=== PATIENT | male | born 1940 | race Two or more races ===

== ENCOUNTER 2021-07-01 07:35 | Outpatient (CLI) | payer OTHER ==
[~2021-07-01 07:35] MED LIST: CLINDAMYCIN HC300 MG PO; GLIMEPIRIDE2 M1 PO; GLYXAMBI 25 MG1 EACH PO; IBUPROFEN800 MG PO; IRBESARTAN150 MG PO; MECLIZINE HCL25 MG PO; METFORMIN HCL1000 M3 PO; METOPROLOL SUCC25 MG PO; PANTOPRAZOLE SO20 MG PO; PLAVIX75 MG PO; SIMVASTATIN20 MG PO
== END 2021-07-01 15:30 | disposition home or self-care (01) ==
LOC: LAB 07:35 → EDBD 07:35 → LAB 15:30
PROVIDERS: ATTEND Emergency Medicine Pediatric Emergency Medicine
DX: R05.8 Other specified cough (principal); R06.02 Shortness of breath; Z03.818 Encounter for observation for suspected exposure to other biological agents ruled out; Z20.828 Contact with and (suspected) exposure to other viral communicable diseases

== ENCOUNTER 2023-12-21 14:28 | Inpatient (IN) | payer OTHER ==
[~2023-12-21] VITALS: Ht 167.6 cm; Wt 79.4 kg
[2023-12-21] MEDS ORDERED: 0.9 % SODIUM CHLORIDE 1,000 ML IV SCH ×2 (15:30→23:00)
[2023-12-21] MEDS ORDERED: 0.9 % SODIUM CHLORIDE 500 ML IV SCH (15:30)
[2023-12-21 15:49] LABS: HEMATOCRIT 48.9 % (39.0-48.0); HEMOGLOBIN 16.6 g/dL (13-16.00); MEAN CELL VOLUME 85.4 fL (80.0-100.00); MEAN CORPUSCULAR HEMOGLOBIN 28.9 pg (27.00-32.0); MEAN CORPUSCULAR HGB CONC 33.9 g/dl (32.0-36.0); PLATELET COUNT 236 K/uL (150-450); RED BLOOD COUNT 5.73 M/uL (4.00-6.00); RED CELL DISTRIBUTION WIDTH 14.8 % (11.5-14.5)
[2023-12-21] MEDS ORDERED: MULTIVIT INFUSN,ADULT 4,VIT K 10 ML VIAL IV SCH (15:59)
[2023-12-21 16:25] LABS: URINE APPEARANCE Clear; URINE BILIRRUBIN Negative (NEGATIVE); URINE BLOOD Small; URINE COLOR Yellow; URINE LEUKOCYTE Negative; URINE NITRATE Negative; URINE PROTEIN 30 (NEGATIVE); URINE UROBILINOGEN 0.2 E.U./dl
[2023-12-21 16:28] LABS: URINE EPITHELIAL CELLS 3.5 uL (0.0-38.8)
[2023-12-21 16:41] LABS: URINE GLUCOSE >=1000 MG/DL (NEGATIVE); URINE RBC 0.6 uL (0.0-20.8); URINE WBC 0.9 uL (0.0-23.2)
[2023-12-21 17:20] LABS: ALBUMIN 3.5 gm/dL (3.4-5.0); BILIRUBIN TOTAL 0.79 mg/dL (0.3-1.2); CALCIUM 9.1 mg/dL (8.5-10.1); CREATININE SERUM 1.41 mg/dL (0.70-1.30); GLOBULINA 4.2 G/DL (2.4-3.5); POTASSIUM 4.12 mEq/L (3.5-5.1); TOTAL PROTEIN 7.7 gm/dL (6.4-8.2)
[2023-12-21] MEDS ORDERED: BUDESONIDE 0.5 MG/2 ML AMPUL.NEB IH STA (20:11)
[2023-12-21] MEDS ORDERED: LEVALBUTEROL HCL 1.25 MG/3 ML SOLUTION IH SCH (20:15)
[2023-12-21] MEDS ORDERED: BUDESONIDE 0.5 MG/2 ML AMPUL.NEB IH ONE (21:44)
[2023-12-21] MEDS ORDERED: LEVALBUTEROL HCL 1.25 MG/3 ML SOLUTION IH ONE (21:44)
[2023-12-21] MEDS ORDERED: FAMOTIDINE/PF 20 MG/2 ML VIAL IV STA (21:48)
[2023-12-21] MEDS ORDERED: FAMOTIDINE/PF 20 MG/2 ML VIAL ONE (21:55)
[2023-12-21 22:30] LABS: ABG PO2 57.2 mmHg (80-100); ABG pCO2 29.6 mmHg (35-45); BASE EXCESS -8.1 mmol/l; Tco2 16.9 mmol/l
[2023-12-21 22:31] LABS: allen test SATISFACTORY; o2 21 %; puncture site RADIAL RIGHT
[2023-12-21] MEDS ORDERED: DEXTROSE 50 % IN WATER 0.5 G/ML DISP.SYRIN IV PRN (23:00)
[2023-12-21] MEDS ORDERED: INSULIN LISPRO 1,000 UNIT/10 ML UNITS SUBCUTANEO PRN (23:00)
[2023-12-21] MEDS ORDERED: BUDESONIDE 0.5 MG/2 ML AMPUL.NEB IH SCH (23:06)
[2023-12-21] MEDS ORDERED: CHOLECALCIFEROL (VITAMIN D3) 5,000 UNITS TABLET PO SCH (23:10)
[2023-12-21] MEDS ORDERED: ASCORBIC ACID 500 MG TABLET PO SCH (23:11)
[2023-12-21] MEDS ORDERED: FAMOTIDINE/PF 20 MG in 0.9 % SODIUM CHLORIDE 8 ML IV PUSH SCH (23:11)
[2023-12-22] MEDS ORDERED: METHYLPREDNISOLONE SOD SUCC 40 MG VIAL IV SCH (01:00)
[2023-12-22] MEDS ORDERED: LEVALBUTEROL HCL 1.25 MG/3 ML SOLUTION IH SCH (01:00)
[2023-12-22] MEDS ORDERED: METHYLPREDNISOLONE SOD SUCC 40 MG VIAL ONE (01:12)
[2023-12-22] MEDS ORDERED: LEVALBUTEROL HCL 0.63 MG/3 ML SOLUTION IH ONE ×2 (01:18→08:18)
[2023-12-22] MEDS ORDERED: LEVALBUTEROL HCL 1.25 MG/3 ML SOLUTION IH ONE (06:23)
[2023-12-22 06:41] LABS: ABG PH 7.325 (7.35-7.45); ABG PO2 103.7 mmHg (80-100); ABG pCO2 29.6 mmHg (35-45); SaO2 97.2 %
[2023-12-22 06:42] LABS: BASE EXCESS -9.4 mmol/l; BICARBONATE 15.1 mmol/l (23-25); allen test SATISFACTORY; o2 50 %; puncture site RADIAL RIGHT
[2023-12-22 06:56] LABS: HEMATOCRIT 50.4 % (39.0-48.0); HEMOGLOBIN 16.9 g/dL (13-16.00); MEAN CELL VOLUME 87.1 fL (80.0-100.00); MEAN CORPUSCULAR HEMOGLOBIN 29.2 pg (27.00-32.0); MEAN CORPUSCULAR HGB CONC 33.5 g/dl (32.0-36.0); PLATELET COUNT 136 K/uL (150-450); RED BLOOD COUNT 5.78 M/uL (4.00-6.00); RED CELL DISTRIBUTION WIDTH 14.6 % (11.5-14.5)
[2023-12-22 07:10] LABS: URINE APPEARANCE Clear; URINE BILIRRUBIN Negative (NEGATIVE); URINE BLOOD Small; URINE COLOR Yellow; URINE LEUKOCYTE Negative; URINE NITRATE Negative; URINE PROTEIN 30 (NEGATIVE); URINE UROBILINOGEN 0.2 E.U./dl
[2023-12-22 07:17] LABS: URINE BACTERIA 18.8 uL (0.0-1933); URINE EPITHELIAL CELLS 20.3 uL (0.0-38.8); URINE WBC 3.2 uL (0.0-23.2)
[2023-12-22 07:32] LABS: INR 1.18; PROTHROMBIN TIME 12.2 SECONDS (9.0-11.5)
[2023-12-22 07:36] LABS: URINE GLUCOSE >=1000 MG/DL (NEGATIVE); URINE RBC 0.7 uL (0.0-20.8)
[2023-12-22] MEDS ORDERED: BUDESONIDE 0.5 MG/2 ML AMPUL.NEB IH ONE (08:18)
[2023-12-22 08:23] LABS: ALBUMIN 3.4 gm/dL (3.4-5.0); BILIRUBIN TOTAL 0.63 mg/dL (0.3-1.2); CALCIUM 8.5 mg/dL (8.5-10.1); CREATININE SERUM 1.32 mg/dL (0.70-1.30); FERRITIN 165.1 NG/ML (26-388); GFR 51.8; MAGNESIUM 1.8 mg/dL (1.8-2.4); POTASSIUM 4.49 mEq/L (3.5-5.1); T4 FREE 0.98 NG/ML (0.76-1.46); TOTAL PROTEIN 7.4 gm/dL (6.4-8.2); TSH 1.1 uIU/mL (0.358-3.74)
[2023-12-22 08:29] LABS: COL EPI 88 SECONDS (82-175)
[2023-12-22 08:34] LABS: C-REACTIVE PROTEIN 14.8 MG/DL (0.00-0.29); PROSTATIC SPECIFIC ANTIGEN 7.58 NG/ML (0.010-4.00)
[2023-12-22] MEDS ORDERED: CHOLECALCIFEROL (VITAMIN D3) 5,000 UNITS TABLET PO SCH (09:00)
[2023-12-22] MEDS ORDERED: CYANOCOBALAMIN (VITAMIN B-12) 1,000 MCG/ML VIAL IM SCH (09:00)
[2023-12-22 09:15] LABS: ERYTHROCYTE SEDIMENTATION RATE 60 mm/hr
[2023-12-22] MEDS ORDERED: INSULIN LISPRO 1,000 UNIT/10 ML UNITS SUBCUTANEO ONE (10:24)
[2023-12-22 14:17] LABS: CKMB 7.3 NG/ML (0.5-3.6)
[2023-12-22] MEDS ORDERED: REMDESIVIR 100 MG VIAL IV NR (16:30)
[2023-12-22] MEDS ORDERED: METOPROLOL SUCCINATE 25 MG TAB.SR.24H PO SCH (17:00)
[2023-12-22] MEDS ORDERED: CLOPIDOGREL BISULFATE 75 MG TABLET PO SCH (17:00)
[2023-12-22] MEDS ORDERED: INSULIN LISPRO 1,000 UNIT/10 ML UNITS SUBCUTANEO SCH (17:00)
[2023-12-22] MEDS ORDERED: AZITHROMYCIN 500 MG in 0.9 % SODIUM CHLORIDE 250 ML IV SCH (17:00)
[2023-12-22] MEDS ORDERED: SIMVASTATIN 20 MG TABLET PO SCH (17:00)
[2023-12-22] MEDS ORDERED: INSULIN GLARGINE,HUM.REC.ANLOG 1,000 UNITS/10 ML UNITS SUBCUTANEO SCH (17:00)
[2023-12-22] MEDS ORDERED: FAMOTIDINE/PF 20 MG/2 ML VIAL IV ONE (18:30)
[2023-12-22] MEDS ORDERED: CEFTRIAXONE SODIUM 2,000 MG VIAL IV SCH (21:00)
[2023-12-22] MEDS ORDERED: MECLIZINE HCL 12.5 MG TABLET PO SCH (21:00)
[2023-12-23 08:50] LABS: HEMATOCRIT 44.9 % (39.0-48.0); HEMOGLOBIN 14.9 g/dL (13-16.00); MEAN CELL VOLUME 84.7 fL (80.0-100.00); MEAN CORPUSCULAR HEMOGLOBIN 28.1 pg (27.00-32.0); MEAN CORPUSCULAR HGB CONC 33.2 g/dl (32.0-36.0); RED CELL DISTRIBUTION WIDTH 15.4 % (11.5-14.5)
[2023-12-23 08:58] LABS: PLATELET COUNT 120 K/uL (150-450)
[2023-12-23] MEDS ORDERED: REMDESIVIR 100 MG VIAL IV SCH (09:00)
[2023-12-23 09:22] LABS: CKMB 9.7 NG/ML (0.5-3.6)
[2023-12-23 09:31] LABS: ALBUMIN 2.8 gm/dL (3.4-5.0); BILIRUBIN TOTAL 0.33 mg/dL (0.3-1.2); CALCIUM 8.6 mg/dL (8.5-10.1); CREATININE SERUM 0.94 mg/dL (0.70-1.30); GFR 76.64; GLOBULINA 3.3 G/DL (2.4-3.5); POTASSIUM 4.52 mEq/L (3.5-5.1); TOTAL PROTEIN 6.1 gm/dL (6.4-8.2)
[2023-12-23 10:40] LABS: ABG PH 7.373 (7.35-7.45); ABG PO2 76.6 mmHg (80-100); ABG pCO2 31.5 mmHg (35-45)
[2023-12-23 10:41] LABS: BICARBONATE 17.9 mmol/l (23-25); SaO2 94.5 %; Tco2 18.9 mmol/l; o2 21 %; puncture site BRADIAL RIGHT
[2023-12-23 12:03] LABS: PROSTATIC SPECIFIC ANTIGEN 17.9 NG/ML (0.010-4.00)
[2023-12-23] MEDS ORDERED: TAMSULOSIN HCL 0.4 MG CAP PO SCH (21:00)
[2023-12-23] MEDS ORDERED: INSULIN NPH HUMAN ISOPHANE 1,000 UNITS/10 ML UNITS SUBCUTANEO STA (21:16)
[2023-12-24] MEDS ORDERED: INSULIN LISPRO 1,000 UNIT/10 ML UNITS SUBCUTANEO SCH (08:00)
[2023-12-24] MEDS ORDERED: PHENOL 177 ML BOTTLE MM SCH (09:00)
[2023-12-24] MEDS ORDERED: INSULIN GLARGINE,HUM.REC.ANLOG 1,000 UNITS/10 ML UNITS SUBCUTANEO SCH (17:00)
[2023-12-24] MEDS ORDERED: FAMOtidine 20 MG TABLET PO SCH (21:00)
[2023-12-25 07:46] LABS: CALCIUM 8.6 mg/dL (8.5-10.1); CREATININE SERUM 0.87 mg/dL (0.70-1.30); FERRITIN 189.6 NG/ML (26-388); GFR 83.8; MAGNESIUM 2.4 mg/dL (1.8-2.4); POTASSIUM 4.91 mEq/L (3.5-5.1)
[2023-12-25] MEDS ORDERED: REMDESIVIR 100 MG VIAL IV SCH (09:00)
[2023-12-25] MEDS ORDERED: CEFTRIAXONE SODIUM 2,000 MG VIAL IV SCH (17:00)
[2023-12-25] MEDS ORDERED: BENZONATATE 200 MG CAPSULE PO PRN (17:00)
[2023-12-25] MEDS ORDERED: INSULIN GLARGINE,HUM.REC.ANLOG 1,000 UNITS/10 ML UNITS SUBCUTANEO SCH (17:00)
[2023-12-25 19:21] LABS: HEMATOCRIT 45.7 % (39.0-48.0); HEMOGLOBIN 15.3 g/dL (13-16.00); MEAN CELL VOLUME 83.8 fL (80.0-100.00); MEAN CORPUSCULAR HEMOGLOBIN 28.1 pg (27.00-32.0); MEAN CORPUSCULAR HGB CONC 33.5 g/dl (32.0-36.0); PLATELET COUNT 143 K/uL (150-450); RED BLOOD COUNT 5.45 M/uL (4.00-6.00); RED CELL DISTRIBUTION WIDTH 14.7 % (11.5-14.5)
[2023-12-26 09:24] LABS: FERRITIN 150.2 NG/ML (26-388)
[2023-12-26 09:28] LABS: PROSTATIC SPECIFIC ANTIGEN 11.8 NG/ML (0.010-4.00)
[2023-12-26] MEDS ORDERED: INSULIN LISPRO 1,000 UNIT/10 ML UNITS SUBCUTANEO SCH (17:00)
[2023-12-26] MEDS ORDERED: INSULIN GLARGINE,HUM.REC.ANLOG 1,000 UNITS/10 ML UNITS SUBCUTANEO SCH (17:00)
[2023-12-26] MEDS ORDERED: TAMS0.4C PO (17:25)
== END 2023-12-26 18:06 | disposition home or self-care (01) | DRG 178 ==
LOC: ER 14:28 → MEDJ 23:55 → SEC-K 23:55 → MEDJ 12-22 14:34
PROVIDERS: Emergency Medicine Pediatric Emergency Medicine; Internal Medicine Critical Care Medicine; Student in an Organized Health Care Education/Training Program; ADMIT Internal Medicine; ATTEND Internal Medicine
PROC: 8E0ZXY6 Isolation (ICD-10-PCS; principal; 2023-12-21)
PROC: BB24ZZZ Computerized Tomography (CT Scan) of Bilateral Lungs (ICD-10-PCS; 2023-12-21)
PROC: 3E0F7GC Introduction of Other Therapeutic Substance into Respiratory Tract, Via Natural or Artificial Opening (ICD-10-PCS; 2023-12-22)
PROC: 4A12X4Z Monitoring of Cardiac Electrical Activity, External Approach (ICD-10-PCS; 2023-12-22)
PROC: XW033E5 Introduction of Remdesivir Anti-infective into Peripheral Vein, Percutaneous Approach, New Technology Group 5 (ICD-10-PCS; 2023-12-23)
DX: U07.1 COVID-19 (principal); B37.49 Other urogenital candidiasis; I25.810 Atherosclerosis of coronary artery bypass graft(s) without angina pectoris; N17.9 Acute kidney failure, unspecified; N41.0 Acute prostatitis; J40 Bronchitis, not specified as acute or chronic; E11.65 Type 2 diabetes mellitus with hyperglycemia; I13.10 Hypertensive heart and chronic kidney disease without heart failure, with stage 1 through stage 4 chronic kidney disease, or unspecified chronic kidney disease; E11.22 Type 2 diabetes mellitus with diabetic chronic kidney disease; N18.9 Chronic kidney disease, unspecified; E86.0 Dehydration; F17.211 Nicotine dependence, cigarettes, in remission; Z79.84 Long term (current) use of oral hypoglycemic drugs; Z95.1 Presence of aortocoronary bypass graft

== ENCOUNTER 2024-01-04 14:37 | Inpatient (IN) | payer OTHER ==
[~2024-01-04] VITALS: Ht 172.7 cm; Wt 77.1 kg
[~2024-01-04 14:37] MED LIST changes: +TAMS0.4C PO
[2024-01-04] MEDS ORDERED: SYNJARDY 12.5-1 EACH PO (14:45)
[2024-01-04] MEDS ORDERED: CEFTRIAXONE SODIUM 2,000 MG VIAL IV ONE (15:45)
[2024-01-04 16:34] LABS: HEMATOCRIT 42.9 % (39.0-48.0); HEMOGLOBIN 14.5 g/dL (13-16.00); MEAN CORPUSCULAR HEMOGLOBIN 28.6 pg (27.00-32.0); MEAN CORPUSCULAR HGB CONC 33.7 g/dl (32.0-36.0); PLATELET COUNT 252 K/uL (150-450); RED BLOOD COUNT 5.05 M/uL (4.00-6.00); RED CELL DISTRIBUTION WIDTH 14.2 % (11.5-14.5)
[2024-01-04 16:56] LABS: ALBUMIN 2.4 gm/dL (3.4-5.0); BILIRUBIN TOTAL 0.72 mg/dL (0.3-1.2); BILIRUBIN,CONJUGATED 0.21 mg/dL (0.0-0.2); BILIRUBIN,UNCONJUGATED 0.51 mg/dL (0.0-0.6); CALCIUM 8.8 mg/dL (8.5-10.1); CREATININE SERUM 1.14 mg/dL (0.70-1.30); GFR 61.35; POTASSIUM 4.13 mEq/L (3.5-5.1); TOTAL PROTEIN 6.5 gm/dL (6.4-8.2)
[2024-01-04] MEDS ORDERED: FAMOTIDINE/PF 20 MG in 0.9 % SODIUM CHLORIDE 100 ML IV SCH (17:00)
[2024-01-04] MEDS ORDERED: CEFTRIAXONE SODIUM 2,000 MG in 0.9 % SODIUM CHLORIDE 100 ML IV SCH (18:45)
[2024-01-04] MEDS ORDERED: ACETAMINOPHEN 325 MG TABLET PO PRN ×2 (18:45)
[2024-01-04] MEDS ORDERED: CLOPIDOGREL BISULFATE 75 MG TABLET PO SCH (19:08)
[2024-01-04] MEDS ORDERED: METOPROLOL TARTRATE 25 MG TABLET PO SCH (19:14)
[2024-01-04] MEDS ORDERED: DEXTROSE 50 % IN WATER 0.5 G/ML DISP.SYRIN IV PRN (19:15)
[2024-01-04] MEDS ORDERED: ONDANSETRON HCL 4 MG in 0.9 % SODIUM CHLORIDE 50 ML IV PRN (19:15)
[2024-01-04] MEDS ORDERED: SODIUM CHLORIDE 0.45 % 1,000 ML IV SCH (19:15)
[2024-01-04] MEDS ORDERED: INSULIN LISPRO 1,000 UNIT/10 ML UNITS SUBCUTANEO PRN (19:15)
[2024-01-04 19:50] LABS: INR 1.2; PARTIAL THROMBOPLASTIN TIME 29.5 SECONDS (22.0-34.0); PROTHROMBIN TIME 12.4 SECONDS (9.0-11.5)
[2024-01-04] MEDS ORDERED: MECLIZINE HCL 12.5 MG TABLET PO SCH (21:00)
[2024-01-04] MEDS ORDERED: BISMUTH SUBSALICYLATE 262 MG/15 ML BLIST.PACK PO PRN (21:15)
[2024-01-04] MEDS ORDERED: BISMUTH SUBSALICYLATE 524 MG/30 ML BLIST.PACK PO STA (21:42)
[2024-01-04] MEDS ORDERED: 0.9 % SODIUM CHLORIDE 1,000 ML IV SCH (22:15)
[2024-01-05 07:36] LABS: URINE APPEARANCE Clear; URINE BILIRRUBIN Negative (NEGATIVE); URINE BLOOD Negative; URINE COLOR Yellow; URINE LEUKOCYTE Negative; URINE NITRATE Negative; URINE PROTEIN Negative (NEGATIVE); URINE UROBILINOGEN 0.2 E.U./dl
[2024-01-05 07:39] LABS: URINE BACTERIA 26.4 uL (0.0-1933); URINE EPITHELIAL CELLS 5.8 uL (0.0-38.8); URINE RBC 2.2 uL (0.0-20.8); URINE WBC 8.1 uL (0.0-23.2)
[2024-01-05 07:51] LABS: URINE GLUCOSE >=1000 MG/DL (NEGATIVE)
[2024-01-05] MEDS ORDERED: SILVER SULFADIAZINE 50 GM JAR TOP SCH (11:28)
[2024-01-05] MEDS ORDERED: LINEZOLID 600 MG TABLET PO SCH (21:00)
[2024-01-06] MEDS ORDERED: LEVALBUTEROL HCL 0.63 MG/3 ML SOLUTION IH SCH (13:00)
[2024-01-06] MEDS ORDERED: CEFEPIME HCL 2,000 MG in 0.9 % SODIUM CHLORIDE 100 ML IV SCH (21:00)
[2024-01-07] MEDS ORDERED: FUROsemide 20 MG/2 ML VIAL IV NR (18:00)
[2024-01-08] MEDS ORDERED: INSULIN NPH HUM/REG INSULIN HM 1,000 UNIT/10 ML UNITS SUBCUTANEO SCH ×2 (08:00→17:00)
[2024-01-08] MEDS ORDERED: FAMOtidine 20 MG TABLET PO SCH (09:00)
[2024-01-10 05:14] LABS: HEMATOCRIT 41.4 % (39.0-48.0); HEMOGLOBIN 14.1 g/dL (13-16.00); MEAN CELL VOLUME 83.5 fL (80.0-100.00); MEAN CORPUSCULAR HEMOGLOBIN 28.4 pg (27.00-32.0); PLATELET COUNT 190 K/uL (150-450); RED BLOOD COUNT 4.96 M/uL (4.00-6.00); RED CELL DISTRIBUTION WIDTH 14.6 % (11.5-14.5)
[2024-01-10 05:33] LABS: CALCIUM 8.4 mg/dL (8.5-10.1); CREATININE SERUM 0.76 mg/dL (0.70-1.30); GFR 97.95; MAGNESIUM 1.5 mg/dL (1.8-2.4)
[2024-01-10 06:08] LABS: POTASSIUM 2.97 mEq/L (3.5-5.1)
[2024-01-10] MEDS ORDERED: POTASSIUM CHLORIDE IN WATER 100 ML IV SCH (09:00)
[2024-01-10] MEDS ORDERED: MAGNESIUM SULFATE IN WATER 2 GM/50 ML PIGGYBAG IV SCH (10:00)
[2024-01-10] MEDS ORDERED: INSULIN LISPRO 1,000 UNIT/10 ML UNITS SUBCUTANEO SCH (12:00)
[2024-01-12 08:02] LABS: HEMOGLOBIN 14.2 g/dL (13-16.00); MEAN CELL VOLUME 83.4 fL (80.0-100.00); MEAN CORPUSCULAR HEMOGLOBIN 28.3 pg (27.00-32.0); MEAN CORPUSCULAR HGB CONC 33.9 g/dl (32.0-36.0); PLATELET COUNT 156 K/uL (150-450); RED BLOOD COUNT 5.03 M/uL (4.00-6.00)
[2024-01-12 08:38] LABS: ALBUMIN 2.3 gm/dL (3.4-5.0); BILIRUBIN TOTAL 0.62 mg/dL (0.3-1.2); CALCIUM 8.1 mg/dL (8.5-10.1); CREATININE SERUM 0.59 mg/dL (0.70-1.30); GFR 131.19; GLOBULINA 3.5 G/DL (2.4-3.5); MAGNESIUM 1.7 mg/dL (1.8-2.4); POTASSIUM 3.66 mEq/L (3.5-5.1); TOTAL PROTEIN 5.8 gm/dL (6.4-8.2)
== END 2024-01-12 14:38 | disposition home or self-care (01) | DRG 637 ==
LOC: ER 14:37 → SURG 19:06 → SEC-K 19:06 → SURG 20:39 → MEDJ 01-08 14:03
PROVIDERS: General Practice; ADMIT Internal Medicine; ATTEND Internal Medicine
PROC: BW38ZZZ Magnetic Resonance Imaging (MRI) of Head (ICD-10-PCS; principal; 2024-01-04)
PROC: B54DZZZ Ultrasonography of Bilateral Lower Extremity Veins (ICD-10-PCS; 2024-01-04)
PROC: B345ZZZ Ultrasonography of Bilateral Common Carotid Arteries (ICD-10-PCS; 2024-01-04)
PROC: B24BZZZ Ultrasonography of Heart with Aorta (ICD-10-PCS; 2024-01-04)
PROC: BW24ZZZ Computerized Tomography (CT Scan) of Chest and Abdomen (ICD-10-PCS; 2024-01-05)
DX: E11.621 Type 2 diabetes mellitus with foot ulcer (principal); J18.9 Pneumonia, unspecified organism; L03.116 Cellulitis of left lower limb; I50.30 Unspecified diastolic (congestive) heart failure; I67.89 Other cerebrovascular disease; L97.529 Non-pressure chronic ulcer of other part of left foot with unspecified severity; E11.649 Type 2 diabetes mellitus with hypoglycemia without coma; N17.9 Acute kidney failure, unspecified; E86.0 Dehydration; Z79.4 Long term (current) use of insulin; U09.9 Post COVID-19 condition, unspecified; Z95.1 Presence of aortocoronary bypass graft; I25.10 Atherosclerotic heart disease of native coronary artery without angina pectoris; I73.9 Peripheral vascular disease, unspecified; I11.0 Hypertensive heart disease with heart failure; E11.65 Type 2 diabetes mellitus with hyperglycemia; I65.21 Occlusion and stenosis of right carotid artery
CPT/HCPCS: 70544

== ENCOUNTER 2024-01-21 12:27 | Inpatient (IN) | payer OTHER ==
[~2024-01-21] VITALS: Ht 182.9 cm; Wt 90.7 kg
[~2024-01-21 12:27] MED LIST changes: +SYNJARDY 12.5-1 EACH PO
[2024-01-21] MEDS ORDERED: 0.9 % SODIUM CHLORIDE 1,000 ML IV SCH (12:45)
[2024-01-21 13:12] LABS: ABG PH 7.316 (7.35-7.45); ABG PO2 86.9 mmHg (80-100); ABG pCO2 22.7 mmHg (35-45); BASE EXCESS -12.6 mmol/l; BICARBONATE 11.3 mmol/l (23-25); SaO2 95.1 %; o2 21 %
[2024-01-21 13:13] LABS: puncture site RADIAL RIGHT
[2024-01-21 13:18] LABS: HEMATOCRIT 54.8 % (39.0-48.0); MEAN CELL VOLUME 85.4 fL (80.0-100.00); MEAN CORPUSCULAR HEMOGLOBIN 28.6 pg (27.00-32.0); MEAN CORPUSCULAR HGB CONC 33.5 g/dl (32.0-36.0); PLATELET COUNT 297 K/uL (150-450); RED BLOOD COUNT 6.42 M/uL (4.00-6.00); RED CELL DISTRIBUTION WIDTH 16.7 % (11.5-14.5)
[2024-01-21 13:20] LABS: HEMOGLOBIN 18.4 g/dL (13-16.00)
[2024-01-21 13:52] LABS: ALBUMIN 3.1 gm/dL (3.4-5.0); BILIRUBIN TOTAL 0.63 mg/dL (0.3-1.2); CALCIUM 10.1 mg/dL (8.5-10.1); CREATININE SERUM 2.02 mg/dL (0.70-1.30); GFR 31.7; GLOBULINA 4.7 G/DL (2.4-3.5); POTASSIUM 4.21 mEq/L (3.5-5.1); TOTAL PROTEIN 7.8 gm/dL (6.4-8.2)
[2024-01-21] MEDS ORDERED: SODIUM CHLORIDE 0.45 % 1,000 ML IV SCH ×2 (15:45→18:00)
[2024-01-21] MEDS ORDERED: IPRATROPIUM BROMIDE 0.5 MG/2.5 ML AMPUL.NEB IH SCH (18:02)
[2024-01-21] MEDS ORDERED: CEFEPIME HCL 2,000 MG VIAL IV SCH (18:07)
[2024-01-21] MEDS ORDERED: ONDANSETRON HCL 4 MG in 0.9 % SODIUM CHLORIDE 50 ML IV PRN (18:15)
[2024-01-21] MEDS ORDERED: INSULIN LISPRO 1,000 UNIT/10 ML UNITS SUBCUTANEO PRN (18:15)
[2024-01-21] MEDS ORDERED: SODIUM CHLORIDE 0.45 % 1,000 ML IV ONE (18:15)
[2024-01-21] MEDS ORDERED: CITRIC ACID/SODIUM CITRATE 30 ML BLIST.PACK PO ONE ×2 (18:15→20:38)
[2024-01-21] MEDS ORDERED: DEXTROSE 50 % IN WATER 0.5 G/ML DISP.SYRIN IV PRN (18:15)
[2024-01-21] MEDS ORDERED: ACETAMINOPHEN 500 MG GEL..CAP PO PRN (18:15)
[2024-01-21 20:04] LABS: INR 1.1; PARTIAL THROMBOPLASTIN TIME 25.5 SECONDS (22.0-34.0); PROTHROMBIN TIME 11.5 SECONDS (9.0-11.5)
[2024-01-21 20:07] LABS: C-REACTIVE PROTEIN < 0.29 MG/DL (0.00-0.29); LIPASE 121 U/L (13-75)
[2024-01-21 20:31] LABS: PH,URINE 5.5 (5.0-8.0); URINE APPEARANCE Clear; URINE BILIRRUBIN Negative (NEGATIVE); URINE BLOOD Large; URINE COLOR Yellow; URINE LEUKOCYTE Negative; URINE NITRATE Negative; URINE PROTEIN 30 (NEGATIVE); URINE UROBILINOGEN 0.2 E.U./dl
[2024-01-21 20:34] LABS: URINE BACTERIA 74.3 uL (0.0-1933); URINE CAST 3.51 uL (0.0-1.40); URINE EPITHELIAL CELLS 27.6 uL (0.0-38.8); URINE RBC 48.4 uL (0.0-20.8); URINE WBC 49.3 uL (0.0-23.2)
[2024-01-21] MEDS ORDERED: CEFEPIME HCL 2,000 MG VIAL ONE (20:38)
[2024-01-21 20:44] LABS: URINE GLUCOSE >=1000 MG/DL (NEGATIVE); URINE KETONE 40 (NEGATIVE)
[2024-01-22] MEDS ORDERED: INSULIN LISPRO 1,000 UNIT/10 ML UNITS SUBCUTANEO ONE ×2 (01:19→17:08)
[2024-01-22] MEDS ORDERED: IPRATROPIUM BROMIDE 0.5 MG/2.5 ML AMPUL.NEB IH SCH (02:00)
[2024-01-22 07:37] LABS: CALCIUM 9.2 mg/dL (8.5-10.1); CREATININE SERUM 1.41 mg/dL (0.70-1.30); MAGNESIUM 2.4 mg/dL (1.8-2.4); PHOSPHOROUS 2.7 mg/dL (2.5-4.9); POTASSIUM 3.36 mEq/L (3.5-5.1)
[2024-01-22] MEDS ORDERED: ENOXAPARIN SODIUM 30 MG/0.3 ML SYRINGE SUBCUTANEO SCH (09:00)
[2024-01-22] MEDS ORDERED: PANTOPRAZOLE SODIUM 40 MG/VIAL VIAL IV SCH (09:00)
[2024-01-22] MEDS ORDERED: LACTOBACILLUS ACIDOPHILUS 1 CAP CAP PO SCH (09:00)
[2024-01-22] MEDS ORDERED: CLOPIDOGREL BISULFATE 75 MG TABLET PO SCH (09:00)
[2024-01-22] MEDS ORDERED: DEXTROSE 5 % IN WATER 1,000 ML IV SCH ×2 (10:15→18:45)
[2024-01-22] MEDS ORDERED: POTASSIUM BICARBONATE/CIT AC 25 MEQ TABLET.EFF PO SCH (13:00)
[2024-01-22 15:16] LABS: CALCIUM 9.5 mg/dL (8.5-10.1); CREATININE SERUM 1.38 mg/dL (0.70-1.30); GFR 49.21; POTASSIUM 4.28 mEq/L (3.5-5.1)
[2024-01-22] MEDS ORDERED: IPRATROPIUM BROMIDE 0.5 MG/2.5 ML AMPUL.NEB IH ONE (16:46)
[2024-01-22] MEDS ORDERED: SIMVASTATIN 20 MG TABLET PO SCH (17:00)
[2024-01-22] MEDS ORDERED: SODIUM CHLORIDE 0.45 % 1,000 ML IV SCH (18:15)
[2024-01-22] MEDS ORDERED: WATER IV SCH ×2 (18:45→19:15)
[2024-01-22] MEDS ORDERED: DEXTROSE IV SCH ×2 (18:45→19:15)
[2024-01-22] MEDS ORDERED: MULTIVIT INFUSN ADULT K IV SCH ×2 (18:45→19:15)
[2024-01-22] MEDS ORDERED: INSULIN GLARGINE,HUM.REC.ANLOG 1,000 UNITS/10 ML UNITS SUBCUTANEO ONE (20:38)
[2024-01-22] MEDS ORDERED: INSULIN GLARGINE,HUM.REC.ANLOG 1,000 UNITS/10 ML UNITS SUBCUTANEO SCH (21:00)
[2024-01-22] MEDS ORDERED: CEFEPIME HCL 2,000 MG VIAL IV SCH (21:00)
[2024-01-22 23:54] LABS: CALCIUM 9.5 mg/dL (8.5-10.1); CREATININE SERUM 1.2 mg/dL (0.70-1.30); GFR 57.82; POTASSIUM 3.91 mEq/L (3.5-5.1)
[2024-01-23] MEDS ORDERED: INSULIN LISPRO 1,000 UNIT/10 ML UNITS SUBCUTANEO ONE ×2 (02:23→10:04)
[2024-01-23 06:21] LABS: HEMOGLOBIN 17.7 g/dL (13-16.00); MEAN CELL VOLUME 84.2 fL (80.0-100.00); MEAN CORPUSCULAR HEMOGLOBIN 28.6 pg (27.00-32.0); PLATELET COUNT 215 K/uL (150-450); RED BLOOD COUNT 6.18 M/uL (4.00-6.00); RED CELL DISTRIBUTION WIDTH 16.6 % (11.5-14.5)
[2024-01-23 06:50] LABS: ALBUMIN 2.8 gm/dL (3.4-5.0); BILIRUBIN TOTAL 0.9 mg/dL (0.3-1.2); CALCIUM 9.6 mg/dL (8.5-10.1); CREATININE SERUM 1.25 mg/dL (0.70-1.30); GFR 55.16; GLOBULINA 3.8 G/DL (2.4-3.5); MAGNESIUM 2.3 mg/dL (1.8-2.4); PHOSPHOROUS 2.5 mg/dL (2.5-4.9); POTASSIUM 3.62 mEq/L (3.5-5.1); TOTAL PROTEIN 6.6 gm/dL (6.4-8.2)
[2024-01-23] MEDS ORDERED: INSULIN GLARGINE,HUM.REC.ANLOG 1,000 UNITS/10 ML UNITS SUBCUTANEO SCH (09:00)
[2024-01-23] MEDS ORDERED: SODIUM CHLORIDE 0.45 % 1,000 ML IV SCH (09:00)
[2024-01-23] MEDS ORDERED: LACTOBACILLUS ACIDOPHILUS 1 CAP CAP PO ONE (09:20)
[2024-01-23] MEDS ORDERED: CLOPIDOGREL BISULFATE 75 MG TABLET PO ONE (09:20)
[2024-01-23] MEDS ORDERED: INSULIN GLARGINE,HUM.REC.ANLOG 1,000 UNITS/10 ML UNITS SUBCUTANEO ONE (09:22)
[2024-01-23] MEDS ORDERED: ENOXAPARIN SODIUM 40 MG/0.4 ML SYRINGE SUBCUTANEO SCH (09:46)
[2024-01-23] MEDS ORDERED: PATIENTS OWN MEDICATION (MEDICAMENTO EN PISO) OP SCH (21:00)
[2024-01-24 07:04] LABS: ALBUMIN 1.8 gm/dL (3.4-5.0); BILIRUBIN TOTAL 0.64 mg/dL (0.3-1.2); CALCIUM 6.7 mg/dL (8.5-10.1); CREATININE SERUM 0.6 mg/dL (0.70-1.30); GFR 128.67; GLOBULINA 2.6 G/DL (2.4-3.5); PHOSPHOROUS 2.2 mg/dL (2.5-4.9); TOTAL PROTEIN 4.4 gm/dL (6.4-8.2)
[2024-01-24 07:24] LABS: HEMATOCRIT 37.1 % (39.0-48.0); HEMOGLOBIN 12.2 g/dL (13-16.00); MEAN CELL VOLUME 83.8 fL (80.0-100.00); MEAN CORPUSCULAR HEMOGLOBIN 27.6 pg (27.00-32.0); RED BLOOD COUNT 4.43 M/uL (4.00-6.00); RED CELL DISTRIBUTION WIDTH 15.9 % (11.5-14.5)
[2024-01-24 07:27] LABS: MAGNESIUM 1.4 mg/dL (1.8-2.4); POTASSIUM 2.86 mEq/L (3.5-5.1)
[2024-01-24 07:48] LABS: PLATELET COUNT 118 K/uL (150-450)
[2024-01-24] MEDS ORDERED: POTASSIUM CHLORIDE IN WATER 40 MEQ/100 ML PIGGYBAG IV SCH (09:00)
[2024-01-24] MEDS ORDERED: POTASSIUM BICARBONATE/CIT AC 25 MEQ TABLET.EFF PO SCH (09:00)
[2024-01-24] MEDS ORDERED: PATIENTS OWN MEDICATION (MEDICAMENTO EN PISO) OP SCH (09:00)
[2024-01-24] MEDS ORDERED: 0.9 % SODIUM CHLORIDE 1,000 ML IV STA (10:09)
[2024-01-24] MEDS ORDERED: POTASSIUM PHOS,M-BASIC-D-BASIC 15 MM in 0.9 % SODIUM CHLORIDE 250 ML IV NR (11:23)
[2024-01-24] MEDS ORDERED: CALCIUM GLUCONATE 100 MG/ML VIAL IV NR (11:24)
[2024-01-24] MEDS ORDERED: MAGNESIUM SULFATE IN WATER 4 GM/100 ML PIGGYBACK IV NR (11:25)
[2024-01-24 11:28] LABS: ALBUMIN 2.2 gm/dL (3.4-5.0); BILIRUBIN TOTAL 0.8 mg/dL (0.3-1.2); CALCIUM 8.4 mg/dL (8.5-10.1); CREATININE SERUM 0.75 mg/dL (0.70-1.30); GFR 99.46; GLOBULINA 3.3 G/DL (2.4-3.5); POTASSIUM 3.41 mEq/L (3.5-5.1); TOTAL PROTEIN 5.5 gm/dL (6.4-8.2)
[2024-01-24] MEDS ORDERED: SODIUM CHLORIDE 0.45 % 1,000 ML IV SCH (11:45)
[2024-01-24] MEDS ORDERED: LEVALBUTEROL HCL 0.63 MG/3 ML SOLUTION IH SCH (12:00)
[2024-01-24] MEDS ORDERED: AMINO ACIDS/PROTEIN HYDROLYS 30 ML BLIST.PACK PO SCH (13:00)
[2024-01-24] MEDS ORDERED: CEFEPIME HCL 2,000 MG VIAL IV SCH (17:00)
[2024-01-24] MEDS ORDERED: CEFEPIME HCL 2,000 MG in 0.9 % SODIUM CHLORIDE 100 ML IV SCH (21:00)
[2024-01-25 07:13] LABS: HEMATOCRIT 43.1 % (39.0-48.0); HEMOGLOBIN 14.6 g/dL (13-16.00); MEAN CELL VOLUME 83.6 fL (80.0-100.00); MEAN CORPUSCULAR HEMOGLOBIN 28.2 pg (27.00-32.0); MEAN CORPUSCULAR HGB CONC 33.8 g/dl (32.0-36.0); PLATELET COUNT 135 K/uL (150-450); RED BLOOD COUNT 5.16 M/uL (4.00-6.00); RED CELL DISTRIBUTION WIDTH 15.5 % (11.5-14.5)
[2024-01-25 08:00] LABS: ALBUMIN 1.6 gm/dL (3.4-5.0); BILIRUBIN TOTAL 0.65 mg/dL (0.3-1.2); CALCIUM 6.7 mg/dL (8.5-10.1); CREATININE SERUM 0.48 mg/dL (0.70-1.30); GFR 166.46; GLOBULINA 2.6 G/DL (2.4-3.5); MAGNESIUM 1.7 mg/dL (1.8-2.4); POTASSIUM 3.55 mEq/L (3.5-5.1); TOTAL PROTEIN 4.2 gm/dL (6.4-8.2)
[2024-01-25 08:19] LABS: PHOSPHOROUS 1.6 mg/dL (2.5-4.9)
[2024-01-25] MEDS ORDERED: MAGNESIUM SULFATE IN WATER 50 ML IV NR (12:57)
[2024-01-25] MEDS ORDERED: POTASSIUM PHOS,M-BASIC-D-BASIC 3 MM/ML VIAL IV SCH (13:00)
[2024-01-25 16:25] LABS: CREATININE SERUM 0.71 mg/dL (0.70-1.30); GFR 105.95; POTASSIUM 4.04 mEq/L (3.5-5.1)
[2024-01-26] MEDS ORDERED: LOSARTAN POTASSIUM 25 MG TABLET PO SCH (17:00)
[2024-01-27] MEDS ORDERED: METOPROLOL SUCCINATE 25 MG TAB.SR.24H PO SCH (09:00)
[2024-01-27 09:25] LABS: ALBUMIN 1.8 gm/dL (3.4-5.0); BILIRUBIN TOTAL 0.48 mg/dL (0.3-1.2); CALCIUM 8.2 mg/dL (8.5-10.1); CREATININE SERUM 0.66 mg/dL (0.70-1.30); GFR 115.27; GLOBULINA 3.4 G/DL (2.4-3.5); MAGNESIUM 1.7 mg/dL (1.8-2.4); POTASSIUM 4.1 mEq/L (3.5-5.1); TOTAL PROTEIN 5.2 gm/dL (6.4-8.2)
[2024-01-27] MEDS ORDERED: MAGNESIUM SULFATE IN WATER 2 GM/50 ML PIGGYBAG IV NR (10:45)
[2024-01-27] MEDS ORDERED: POTASSIUM PHOS,M-BASIC-D-BASIC 3 MM/ML VIAL IV ONE (12:00)
[2024-01-27] MEDS ORDERED: NAPH,MB-DB/K PH,MBDB 1 PKT PACKET PO SCH (17:00)
[2024-01-28] MEDS ORDERED: INSULIN NPH HUM/REG INSULIN HM 1,000 UNIT/10 ML UNITS SUBCUTANEO SCH (08:00)
[2024-01-28 08:23] LABS: HEMATOCRIT 41.9 % (39.0-48.0); MEAN CELL VOLUME 84.1 fL (80.0-100.00); MEAN CORPUSCULAR HEMOGLOBIN 28.1 pg (27.00-32.0); MEAN CORPUSCULAR HGB CONC 33.4 g/dl (32.0-36.0); PLATELET COUNT 187 K/uL (150-450); RED BLOOD COUNT 4.98 M/uL (4.00-6.00); RED CELL DISTRIBUTION WIDTH 15.4 % (11.5-14.5)
[2024-01-28 08:55] LABS: ALBUMIN 1.9 gm/dL (3.4-5.0); BILIRUBIN TOTAL 0.52 mg/dL (0.3-1.2); CALCIUM 8.1 mg/dL (8.5-10.1); CREATININE SERUM 0.66 mg/dL (0.70-1.30); GFR 115.27; GLOBULINA 3.5 G/DL (2.4-3.5); MAGNESIUM 1.9 mg/dL (1.8-2.4); PHOSPHOROUS 2.2 mg/dL (2.5-4.9); POTASSIUM 3.96 mEq/L (3.5-5.1); TOTAL PROTEIN 5.4 gm/dL (6.4-8.2)
[2024-01-28] MEDS ORDERED: INSULIN LISPRO 1,000 UNIT/10 ML UNITS SUBCUTANEO SCH (12:00)
[2024-01-29] MEDS ORDERED: INSULIN NPH HUM/REG INSULIN HM 1,000 UNIT/10 ML UNITS SUBCUTANEO SCH (08:00)
[2024-01-29 21:51] LABS: URINE APPEARANCE Cloudy; URINE BILIRRUBIN Negative (NEGATIVE); URINE BLOOD Large; URINE COLOR Yellow; URINE KETONE Trace (NEGATIVE); URINE LEUKOCYTE Moderate; URINE NITRATE Negative; URINE PROTEIN 30 (NEGATIVE); URINE UROBILINOGEN 0.2 E.U./dl
[2024-01-29 21:54] LABS: URINE BACTERIA 49.1 uL (0.0-1933); URINE RBC 43.6 uL (0.0-20.8); URINE WBC 617.3 uL (0.0-23.2)
[2024-01-29 22:09] LABS: URINE EPITHELIAL CELLS 0.9 uL (0.0-38.8); URINE GLUCOSE 500 MG/DL (NEGATIVE); URINE YEAST MANY /hpf
[2024-01-30 09:55] LABS: ABG PH 7.495 (7.35-7.45); ABG PO2 69.4 mmHg (80-100); BASE EXCESS 4.7 mmol/l; BICARBONATE 27.9 mmol/l (23-25); SaO2 95.4 %; Tco2 29.1 mmol/l
[2024-01-30 09:56] LABS: allen test SATISFACTORY; o2 21 %; puncture site RADIAL RIGHT
[2024-01-30] MEDS ORDERED: FLUCONAZOLE 200 MG TABLET PO SCH (12:00)
[2024-01-30] MEDS ORDERED: TAMSULOSIN HCL 0.4 MG CAP PO SCH (17:34)
[2024-01-31 09:59] LABS: HEMATOCRIT 43.7 % (39.0-48.0); HEMOGLOBIN 14.5 g/dL (13-16.00); MEAN CELL VOLUME 84.9 fL (80.0-100.00); MEAN CORPUSCULAR HEMOGLOBIN 28.2 pg (27.00-32.0); MEAN CORPUSCULAR HGB CONC 33.2 g/dl (32.0-36.0); PLATELET COUNT 250 K/uL (150-450); RED BLOOD COUNT 5.15 M/uL (4.00-6.00); RED CELL DISTRIBUTION WIDTH 15.8 % (11.5-14.5)
[2024-01-31 10:30] LABS: ALBUMIN 2.1 gm/dL (3.4-5.0); BILIRUBIN TOTAL 0.64 mg/dL (0.3-1.2); CALCIUM 8.6 mg/dL (8.5-10.1); CREATININE SERUM 0.59 mg/dL (0.70-1.30); GFR 131.19; GLOBULINA 3.7 G/DL (2.4-3.5); MAGNESIUM 1.7 mg/dL (1.8-2.4); PHOSPHOROUS 3.2 mg/dL (2.5-4.9); POTASSIUM 4.25 mEq/L (3.5-5.1); TOTAL PROTEIN 5.8 gm/dL (6.4-8.2)
[2024-02-01] MEDS ORDERED: INSULIN NPH HUM/REG INSULIN HM 1,000 UNIT/10 ML UNITS SUBCUTANEO SCH (08:00)
[2024-02-01] MEDS ORDERED: CLOPIDOGREL BIS75 MG PO (08:44)
[2024-02-01] MEDS ORDERED: LOSARTAN POTASS25 MG PO (08:45)
[2024-02-01] MEDS ORDERED: SIMVASTATIN20 MG PO (08:46)
[2024-02-01] MEDS ORDERED: INTESTINEX680 M1 PO (08:47)
[2024-02-01] MEDS ORDERED: PHOS-NAK PACKE1 EACH PO (08:48)
[2024-02-01] MEDS ORDERED: TRADJENTA5 MG PO (08:58)
[2024-02-01] MEDS ORDERED: LEVALBUTER0.31 MG/3 IH (08:59)
[2024-02-01] MEDS ORDERED: Diflucan 200MG TABLE PO (09:01)
[2024-02-01] MEDS ORDERED: TOPROL XL25 M1 PO (09:01)
[2024-02-01] MEDS ORDERED: TAMS0.4C PO (09:03)
[2024-02-01] MEDS ORDERED: PROSCAR5 MG PO (09:03)
[2024-02-01] MEDS ORDERED: SILVER SULFADIAZINE 50 GM,NYSTATIN 30 GM,ZINC OXIDE 30 GM TOP SCH ×2 (09:14→17:00)
[2024-02-01] MEDS ORDERED: DORZOLAMIDE OP SCH (17:00)
[2024-02-01] MEDS ORDERED: TIMOLOL MALEATE OP SCH (17:00)
[2024-02-01] MEDS ORDERED: LATANOPROST OP SCH (21:00)
== END 2024-02-01 17:05 | disposition home or self-care (01) | DRG 871 ==
LOC: ER 12:27 → SEC-K 18:43 → MEDJ 18:43 → ICU-2 18:43 → ICU 01-23 19:06 → MEDJ 01-25 23:19
PROVIDERS: Emergency Medicine; General Practice; Internal Medicine; Internal Medicine Infectious Disease; ADMIT Internal Medicine; ATTEND Internal Medicine
PROC: BW21ZZZ Computerized Tomography (CT Scan) of Abdomen and Pelvis (ICD-10-PCS; principal; 2024-01-21)
PROC: BW24ZZZ Computerized Tomography (CT Scan) of Chest and Abdomen (ICD-10-PCS; 2024-01-21)
PROC: BW4GZZZ Ultrasonography of Pelvic Region (ICD-10-PCS; 2024-01-30)
DX: A41.9 Sepsis, unspecified organism (principal); J69.0 Pneumonitis due to inhalation of food and vomit; U07.1 COVID-19; N17.9 Acute kidney failure, unspecified; E87.0 Hyperosmolality and hypernatremia; N39.0 Urinary tract infection, site not specified; E11.9 Type 2 diabetes mellitus without complications; Z79.4 Long term (current) use of insulin; N20.0 Calculus of kidney; I25.10 Atherosclerotic heart disease of native coronary artery without angina pectoris; R09.02 Hypoxemia

== ENCOUNTER 2024-05-14 21:53 | Emergency (ER) | payer OTHER ==
[~2024-05-14] VITALS: Ht 167.6 cm; Wt 68.0 kg
[~2024-05-14 21:53] MED LIST changes: +CLOPIDOGREL BIS75 MG PO; +Diflucan 200MG TABLE PO; +INTESTINEX680 M1 PO; +LEVALBUTER0.31 MG/3 IH; +LOSARTAN POTASS25 MG PO; +PHOS-NAK PACKE1 EACH PO; +PROSCAR5 MG PO; +TOPROL XL25 M1 PO; +TRADJENTA5 MG PO
[2024-05-14 23:22] LABS: HEMATOCRIT 39.1 % (39.0-48.0); HEMOGLOBIN 13.2 g/dL (13-16.00); MEAN CELL VOLUME 85.5 fL (80.0-100.00); MEAN CORPUSCULAR HEMOGLOBIN 28.9 pg (27.00-32.0); MEAN CORPUSCULAR HGB CONC 33.8 g/dl (32.0-36.0); PLATELET COUNT 174 K/uL (150-450); RED BLOOD COUNT 4.58 M/uL (4.00-6.00); RED CELL DISTRIBUTION WIDTH 13.8 % (11.5-14.5)
[2024-05-14] MEDS ORDERED: ACETAMINOPHEN 500 MG GEL..CAP PO ONE (23:45)
== END 2024-05-15 00:44 | disposition home or self-care (01) ==
LOC: ER 21:53
PROVIDERS: General Practice
DX: S01.81XA Laceration without foreign body of other part of head, initial encounter (principal); W19.XXXA Unspecified fall, initial encounter; Y93.89 Activity, other specified; Y92.89 Other specified places as the place of occurrence of the external cause; Y99.8 Other external cause status; I10 Essential (primary) hypertension; E11.9 Type 2 diabetes mellitus without complications; Z79.84 Long term (current) use of oral hypoglycemic drugs

== ENCOUNTER 2025-01-29 14:36 | Outpatient (CLI) | payer OTHER ==
[2025-01-29 14:56] LABS: URINE APPEARANCE Turbid; URINE BILIRRUBIN Negative (NEGATIVE); URINE BLOOD Moderate; URINE COLOR Yellow; URINE KETONE Trace (NEGATIVE); URINE LEUKOCYTE Moderate; URINE NITRATE Negative; URINE PROTEIN 30 (NEGATIVE); URINE UROBILINOGEN 0.2 E.U./dl
[2025-01-29 15:00] LABS: URINE BACTERIA 261.5 uL (0.0-1933); URINE EPITHELIAL CELLS 5.6 uL (0.0-38.8); URINE RBC 11.1 uL (0.0-20.8)
[2025-01-29 15:34] LABS: URINE CAST 0.43 uL (0.0-1.40); URINE GLUCOSE >=1000 MG/DL (NEGATIVE); URINE WBC > 5548.3 uL (0.0-23.2)
[2025-01-29 16:23] LABS: URINE YEAST FEW /hpf
== END 2025-01-29 14:38 | disposition home or self-care (01) ==
LOC: LAB 14:36
PROVIDERS: ATTEND Internal Medicine
DX: N39.0 Urinary tract infection, site not specified (principal); N41.0 Acute prostatitis